=== PATIENT | male | born 1965 | race Caucasian/White ===

== ENCOUNTER 2017-06-20 12:01 | Observation (INO) | payer BC, OTHER ==
[2017-06-20] MEDS ORDERED: ASPIRIN 325 MG TABLET PO ONE (12:05)
[2017-06-20] MEDS ORDERED: ASPIRIN 81 MG CHEWABLE TABLET PO ONE (12:13)
[2017-06-20] MEDS ORDERED: DILTIAZEM 25MG/5ML VIAL IV ONE (12:14)
--- NOTE | 2017-06-20 12:14 | Emergency Department Record ---
History of Present Illness - General Chief Complaint: Arrythmia/Palpitations Stated Complaint: AFIB Time Seen by Provider: 06/20/17 12:05 Source: Patient - History of Present Illness Initial Comments: The patient states he was awakened from sleep with his heart pounding in his chest, nausea, and diaphoresis. He hoped it would go away for 3 hours, but did not want to come to the hospital. His family and co-worker convinced him to go to his PCP, who sent him here, now 9 hour after symptoms began. He states he is no longer nauseated or sweating, but feels palpitations in his chest. Patient has had numerous episodes of palpitations in the past all of which have resolved quickly with belching. Risks: High blood pressure on atenolol; denies DM, smoking, cholesterol elevation, or FH. He has o history of PE, DVT, or leg pain. MD Complaint: "Heart racing", Irregular heart beat - Related Data Home Medications Medication Instructions Recorded Confirmed Last Taken Allopurinol [Zyloprim] 100 mg PO DAILY 01/24/16 06/20/17 1 Day Ago ~01/23/16 Atenolol 50 mg PO DAILY 01/24/16 06/20/17 1 Day Ago ~01/23/16 Allergies Allergy/AdvReac Type Severity Reaction Status Date / Time No Known Drug Allergies Allergy Verified 01/24/16 11:19 Review of Systems Reviewed: No additional complaints except as noted below Constitutional: Reports: As per HPI. Denies: Chills, Fever, Malaise, Night sweats, Weakness, Weight change Eyes: Reports: As per HPI. Denies: Eye discharge, Eye pain, Photophobia, Vision change ENT: Reports: As per HPI. Denies: Congestion, Dental pain, Ear pain, Epistaxis , Hearing loss, Throat pain Respiratory: Reports: As per HPI. Denies: Cough, Dyspnea, Hemoptysis, Stridor, Wheezes Cardiovascular: Reports: As per HPI. Denies: Arrhythmia, Chest pain, Dyspnea on exertion, Edema, Murmurs, Orthopnea, Palpitations, Paroxysmal nocturnal dyspnea, Rheumatic Fever, Syncope Endocrine: Reports: As per HPI. Denies: Fatigue, Heat or cold intolerance, Polydipsia, Polyuria Gastrointestinal: Reports: As per HPI. Denies: Abdominal pain, Constipation, Diarrhea, Hematemesis, Hematochezia, Melena, Nausea, Vomiting Genitourinary: Reports: As per HPI. Denies: Dysuria, Frequency, Hematuria, Incontinence, Retention, Testicular pain, Testicular mass, Urgency Musculoskeletal: Reports: As per HPI. Denies: Arthralgia, Back pain, Gout, Joint swelling, Myalgia, Neck pain Skin: Reports: As per HPI. Denies: Bruising, Change in color, Change in hair/ nails, Lesions, Pruritus, Rash Neurological: Reports: As per HPI. Denies: Abnormal gait, Confusion, Headache, Numbness, Paresthesias, Seizure, Tingling, Tremors, Vertigo, Weakness Psychiatric: Reports: As per HPI. Denies: Anxiety, Auditory hallucinations, Depression, Homicidal thoughts, Suicidal thoughts, Visual hallucinations Hematological/Lymphatic: Reports: As per HPI. Denies: Anemia, Blood Clots, Easy bleeding, Easy bruising, Swollen glands Past Medical History - SOCIAL HISTORY Smoking Status: Never smoker - RESPIRATORY Hx Respiratory Disorders: No - CARDIOVASCULAR Hx Hypertension: Yes - NEURO Hx Neuro Disorders: No - GI Hx Diverticulitis: Yes - Hx Genitourinary Disorders: No - ENDOCRINE Hx Diabetes: No Hx Thyroid Disease: No - MUSCULOSKELETAL Hx Gout: Yes (usually once a year now twice this year) - PSYCH Hx Psych Problems: No - HEMATOLOGY/ONCOLOGY Hx Hematology/Oncology Disorders: No Family Medical History Family Hx Comment (NOT TO BE USED IN PLACE OF ITEMS BELOW): gout Physical Exam - General General Appearance: Alert, Oriented x3, Cooperative, Anxious (with trace of diaphoresis) - Head Head exam: Normal inspection - Eye Eye exam: Normal appearance, PERRL Pupils: Normal accommodation - ENT ENT exam: Normal exam, Mucous membranes moist, Normal external ear exam, Normal orophraynx, TM's normal bilaterally Ear exam: Normal external inspection. negative: External canal tenderness Nasal Exam: Normal inspection. negative: Discharge, Sinus tenderness Mouth exam: Normal external inspection, Tongue normal Teeth exam: Normal inspection. negative: Dental caries Throat exam: Normal inspection. negative: Tonsillar erythema, Tonsillar exudate - Neck Neck exam: Normal inspection, Full ROM. negative: Tenderness - Respiratory Respiratory exam: Normal lung sounds bilaterally. negative: Respiratory distress - Cardiovascular Cardiovascular Exam: Normal heart sounds, Irregular rhythm, Tachycardia - GI/Abdominal GI/Abdominal exam: Soft, Normal bowel sounds. negative: Tenderness - Rectal Rectal exam: Deferred - exam: Deferred - Extremities Extremities exam: Normal inspection, Full ROM, Normal capillary refill. negative: Calf tenderness, Pedal edema, Tenderness - Back Back exam: Reports: Normal inspection, Full ROM. Denies: Muscle spasm, Rash noted, Tenderness - Neurological Neurological exam: Alert, CN II-XII intact, Normal gait, Oriented X3, Reflexes normal - Psychiatric Psychiatric exam: Normal affect, Normal mood - Skin Skin exam: Dry, Intact, Normal color, Warm Course - Reevaluation(s) Reevaluation #1: Heart rate improved to 50's to 60's but still in atrial fibrillation. Patient is feeling better, no longer diaphoretic. Agrees to admission. 06/20/17 13:04 Reevaluation #2: MARIELA Perez for Dr. Li. Obs. 06/20/17 13:56 Medical Decision Making - Management Options MDM Management: Additional Work-up Planned (e.g. ADM/Transfer/OP Study) ( admission for new onset afib) - Data Complexity MDM Data: Labs Ordered and/or Reviewed, X-Ray Ordered and/or Reviewed (CXR two view Neg per ED physician.), EKG Ordered and/or Reviewed - Lab Data Result diagrams: 06/20/17 12:05 06/20/17 12:05 - EKG Data -: EKG Interpreted by Me EKG: No Acute Changes (Atrial fibrillation with rapid rate of 131/min.), Abnormal EKG Disposition Disposition: Admit Clinical Impression: New onset atrial fibrillation Disposition: Still a Patient at [facility] Decision to Admit: Admit from ER Decision to Admit Date: 06/20/17 Decision to Admit Time: 13:12 Accepting Physician: Dr. Li/Chey Perez Time Discussed w/Accepting Physician: 13:52 Condition: (2) Stable Forms: Patient Portal Access Quality - Quality Measures Quality Measures: N/A - Blood Pressure Screening Blood Pressure Classification: Hypertensive Reading Systolic Measurement: 141 Diastolic Measurement: 124 Screening for High Blood Pressure: Not Eligible for Measure [[id number]] Not Eligible Reason: Active Diagnosis of Hypertension
[2017-06-20 12:16] LABS: BASO % 0.3 % (0-6); EOS % 1.9 % (0-6); GRAN % 62.5 % (47-80); HEMATOCRIT 50.2 % (42.0-52.0); HEMOGLOBIN 17.7 gm/dl (14.0-18.0); LYMPH % 29.1 % (16-45); MEAN CELL VOLUME 84.9 fl (81-97); MEAN CORPUSCULAR HEMOGLOBIN 29.9 pg (27-33); MEAN CORPUSCULAR HGB CONC 35.3 g/dl (32-36); MEAN PLATELET VOLUME 9.9 fl (7.4-10.4); MONO % 6.2 % (0-9); PLATELET COUNT 236 K/uL (130-400); RED BLOOD COUNT 5.91 M/uL (4.40-5.70); RED CELL DISTRIBUTION WIDTH 13.2 % (11.5-14.5); WHITE BLOOD COUNT W/O DIFF 6.3 K/uL (4.2-12.2)
[2017-06-20 12:28] LABS: ANION GAP 14.1 (7-16); BLOOD UREA NITROGEN 19 mg/dL (9-20); CARBON DIOXIDE 25.9 mmol/L (22-30); CREATININE 1.1 mg/dL (0.66-1.25); EST GLOMERULAR FILTRATION RATE > 60 ml/min; GLUCOSE,RANDOM 97 mg/dL (70-110)
[2017-06-20 12:32] LABS: INR 0.96; PROTHROMBIN TIME (PATIENT) 10.4 SECONDS (9.5-12.1)
[2017-06-20 12:33] LABS: D-DIMER < 0.19 mg/L FEU (0-0.59)
[2017-06-20 12:41] LABS: TROPONIN I 0.019 ng/mL (0.00-0.034)
[2017-06-20] MEDS ORDERED: DILTIAZEM HCL 125 MG in 0.9 % SODIUM CHLORIDE 100ML 100 ML IV SCH (13:15)
[2017-06-20] MEDS ORDERED: AL HYDROX/MAG HYDROX 30ML UD PO PRN (15:10)
[2017-06-20] MEDS ORDERED: ACETAMINOPHEN 500 MG TABLET PO PRN (15:10)
[2017-06-20] MEDS ORDERED: HEPARIN SODIUM 1000 UNIT/1 ML 10ML VIAL IVP ONE (16:07)
--- NOTE | 2017-06-20 16:10 | History & Physical ---
History of Present Illness - Date of Service Date of Service for History & Physical: 06/20/17 - History of Present Illness Admitting Diagnosis: New onset atrial fibrillation History of Present Illness: 52yo male with CC of heart palpitations. HE has history of htn and gout. Patient was awoken at 3am on 06/20/17 with heart palpitations. He was having profuse sweating, felt like his heart was beating out of his chest, some shortness of breath and tightness in the left upper extremity. Says he took a shower and felt his symptoms got somewhat better. He went to work this morning and continued to have symptoms and finally his boss and convinced him to go to the ED. While in the ED, was found to be in afib with rate of 131. No ST changes. CXR was negative for acute process. First set of cardiac enzymes was within normal ranges. Patient received cardizem bolus of 20mg and placed on 5mg/hr drip. Heart rate improved to 90-100bpm. His sweating and heart palpitations resolved once his heart rate improved. Blood pressure remained stable between 115-111/75- 85mmhg. Patient was admitted to [facility] for observation 06/20/17-Patient states he is feeling great right now. He denies any shortness of breath, chest pain or heaviness, no left arm tightness or numbness/tingling. He says he has not been having any sweating since his arrival to ED. Says he has never been hospitalized for this before. He has had very brief episodes of heart palpitations in the past that have only ever last a few seconds, nothing like this. He denies any medical problems aside from htn and gout. PCP: [facility]: not established Travel Screening - Travel/Exposure Within Last 30 Days Have you traveled within the last 30 days?: No - Travel/Exposure Within Last Year Have you traveled outside the [place] in the last year?: No - Additonal Travel Details Have you been exposed to anyone with a communicable illness?: No - Travel Symptoms Symptom Screening: None Review of Systems Constitutional: Reports: As per HPI. Denies: Chills, Fever, Malaise, Night sweats, Weakness, Weight change Eyes: Reports: As per HPI. Denies: Eye discharge, Eye pain, Photophobia, Vision change ENT: Reports: As per HPI. Denies: Congestion, Dental pain, Ear pain, Epistaxis , Hearing loss, Throat pain Respiratory: Reports: As per HPI. Denies: Cough, Dyspnea, Hemoptysis, Stridor, Wheezes Cardiovascular: Reports: As per HPI. Denies: Arrhythmia, Chest pain, Dyspnea on exertion, Edema, Murmurs, Orthopnea, Palpitations, Paroxysmal nocturnal dyspnea, Rheumatic Fever, Syncope Endocrine: Reports: As per HPI. Denies: Fatigue, Heat or cold intolerance, Polydipsia, Polyuria Gastrointestinal: Reports: As per HPI. Denies: Abdominal pain, Constipation, Diarrhea, Hematemesis, Hematochezia, Melena, Nausea, Vomiting Genitourinary: Reports: As per HPI. Denies: Dysuria, Frequency, Hematuria, Incontinence, Retention, Testicular pain, Testicular mass, Urgency Musculoskeletal: Reports: As per HPI. Denies: Arthralgia, Back pain, Gout, Joint swelling, Myalgia, Neck pain Skin: Reports: As per HPI. Denies: Bruising, Change in color, Change in hair/ nails, Lesions, Pruritus, Rash Neurological: Reports: As per HPI. Denies: Abnormal gait, Confusion, Headache, Numbness, Paresthesias, Seizure, Tingling, Tremors, Vertigo, Weakness Psychiatric: Reports: As per HPI. Denies: Anxiety, Auditory hallucinations, Depression, Homicidal thoughts, Suicidal thoughts, Visual hallucinations Hematological/Lymphatic: Reports: As per HPI. Denies: Anemia, Blood Clots, Easy bleeding, Easy bruising, Swollen glands Past Medical History - SOCIAL HISTORY Smoking Status: Never smoker Alcohol Use: Occasional Alcohol Use Comment: whiskey Drug Use: None - RESPIRATORY Hx Respiratory Disorders: No - CARDIOVASCULAR Hx Cardio Disorders: Yes Hx Abnormal EKG: Yes (afib today) Hx Chest Pain: Yes (today) Hx Hypertension: Yes (medication) Hx Irregular Heartbeat: Yes (today) Hx Palpitations: Yes (today) - NEURO Hx Neuro Disorders: No - GI Hx GI Disorders: Yes Hx Diverticulitis: Yes - Hx Genitourinary Disorders: No - ENDOCRINE Hx Diabetes: No Hx Thyroid Disease: No - MUSCULOSKELETAL Hx Musculoskeletal Disorders: Yes Hx Gout: Yes (usually once a year now twice this year) - PSYCH Hx Psych Problems: No - HEMATOLOGY/ONCOLOGY Hx Hematology/Oncology Disorders: No Family Medical History Any Significant Family History?: Yes Family Hx Comment (NOT TO BE USED IN PLACE OF ITEMS BELOW): gout Hx Cancer: Mother, Grandparents Hx HTN: Father, Grandparents H&P Meds/Allergies - Allergies Allergies: Allergies Allergy/AdvReac Type Severity Reaction Status Date / Time No Known Drug Allergies Allergy Verified 01/24/16 11:19 - Home Medications Home Medications Medication Instructions Recorded Confirmed Last Taken Allopurinol [Zyloprim] 100 mg PO DAILY 01/24/16 06/20/17 1 Day Ago ~01/23/16 Atenolol 50 mg PO DAILY 01/24/16 06/20/17 1 Day Ago ~01/23/16 - Active Medications Active Medications: Current Medications Acetaminophen (Tylenol 500mg Tab) 1,000 mg PO Q6H PRN PRN Reason: PAIN/TEMP Al Hydroxide/Mg Hydroxide (Maalox) 30 ml PO Q4H PRN PRN Reason: GI UPSET Allopurinol (Zyloprim) 100 mg PO DAILY HENOK Aspirin (Ecotrin (Ec)) 325 mg PO DAILY HENOK Atenolol (Tenormin) 50 mg PO DAILY HENOK Diltiazem HCl 125 mg/ Sodium (Chloride) 125 mls @ 5 mls/hr IV TITRATE HENOK; 5 MG /HR PRN Reason: Protocol Last Admin: 06/20/17 13:14 Dose: 5 mg/hr, 5 mls/hr Physical Exam - Vital Signs Vital Signs: Vital Signs - Last 24 Hrs Pulse Pulse Pulse Resp BP BP Pulse Ox 06/20/17 15:34 95 H 83 14 06/20/17 15:06 83 14 111/85 96 06/20/17 14:20 89 16 115/76 96 - General General Appearance: Alert, Oriented x3, Cooperative, No acute distress - Head Head exam: Normal inspection - Eye Eye exam: Normal appearance, PERRL Pupils: Normal accommodation - ENT ENT exam: Normal exam, Mucous membranes moist, Normal external ear exam, Normal orophraynx, TM's normal bilaterally Ear exam: Normal external inspection. negative: External canal tenderness Nasal Exam: Normal inspection. negative: Discharge, Sinus tenderness Mouth exam: Normal external inspection, Tongue normal Teeth exam: Normal inspection. negative: Dental caries Throat exam: Normal inspection. negative: Tonsillar erythema, Tonsillar exudate - Neck Neck exam: Normal inspection, Full ROM. negative: Tenderness - Respiratory Respiratory exam: Normal lung sounds bilaterally. negative: Respiratory distress - Cardiovascular Cardiovascular Exam: Regular rate, Normal heart sounds, Irregular rhythm - GI/Abdominal GI/Abdominal exam: Soft, Normal bowel sounds. negative: Tenderness - Rectal Rectal exam: Deferred - exam: Deferred - Extremities Extremities exam: Normal inspection, Full ROM, Normal capillary refill. negative: Calf tenderness, Pedal edema, Tenderness - Back Back exam: Reports: Normal inspection, Full ROM. Denies: Muscle spasm, Rash noted, Tenderness - Neurological Neurological exam: Alert, CN II-XII intact, Normal gait, Oriented X3, Reflexes normal - Psychiatric Psychiatric exam: Normal affect, Normal mood - Skin Skin exam: Dry, Intact, Normal color, Warm Results - Labs Result Diagrams: 06/20/17 12:05 06/20/17 12:05 - Imaging and Cardiology Chest x-ray Status: Report reviewed (no actue process) VTE H&P Assessment - Risk for VTE Risk for VTE: Yes Risk Level: High Risk Assessment Date: 06/20/17 Risk Assessment Time: 16:11 VTE Orders Placed or Will Be Placed: Yes Plan - Detailed Diagnosis and Plan (1) New onset atrial fibrillation Current Visit: Yes Status: Acute Base Code: I48.91 - UNSPECIFIED ATRIAL FIBRILLATION Comment: 06/20/17- new onset of afib 12H ago with rate controlled 90-110bpm on cardizem 5mg/hr drip. Patient is hemodynamically stable and asymptomatic. 1st set of cardiac enzymes returned within normal ranges and no ischemic changes on EKG. Spoke with Dr. Lance of [facility] and he does feel patient is candidate for [facility] cardioversion. -Will do acute care transfer to [facility] accepting physician is Dr. Lance of [facility] -will continue cardizem drip at 5mg/hr -will give 5000 unit heparin bolus and start 15units/kg/hr drip -next set of enzymes will be due at 20:05 (2) Full code status Current Visit: Yes Status: Acute Base Code: Z78.9 - OTHER SPECIFIED HEALTH STATUS Comment: 06/20/17- patient is full code (3) DVT prophylaxis Current Visit: Yes Status: Acute Base Code: [id number] - Comment: 06/20/17- patient considered high risk -full dose apsirin given -heparin bolus and drip initiated
[2017-06-20] MEDS ORDERED: HEPARIN SODIUM/D5W 25,000 UNITS/500 ML BAG IV SCH (16:15)
--- NOTE | 2017-06-20 16:19 | Discharge Summary ---
Providers Discharge Summary Date: 06/20/17 Date of admission: 06/20/17 14:19 Expected Date of Discharge: 06/20/17 Attending physician: KULDEEP NAPOLES Primary care physician: ANA MARÍA ORTIZ D.O. Physical Exam - Vital Signs Vital Signs: Vital Signs - Last 24 Hrs Pulse Pulse Pulse Resp BP BP Pulse Ox 06/20/17 15:34 95 H 83 14 06/20/17 15:06 83 14 111/85 96 06/20/17 14:20 89 16 115/76 96 - General General Appearance: Alert, Oriented x3, Cooperative, No acute distress - Head Head exam: Normal inspection - Eye Eye exam: Normal appearance, PERRL Pupils: Normal accommodation - ENT ENT exam: Normal exam, Mucous membranes moist, Normal external ear exam, Normal orophraynx, TM's normal bilaterally Ear exam: Normal external inspection. negative: External canal tenderness Nasal Exam: Normal inspection. negative: Discharge, Sinus tenderness Mouth exam: Normal external inspection, Tongue normal Teeth exam: Normal inspection. negative: Dental caries Throat exam: Normal inspection. negative: Tonsillar erythema, Tonsillar exudate - Neck Neck exam: Normal inspection, Full ROM. negative: Tenderness - Respiratory Respiratory exam: Normal lung sounds bilaterally. negative: Respiratory distress - Cardiovascular Cardiovascular Exam: Regular rate, Normal heart sounds, Irregular rhythm - GI/Abdominal GI/Abdominal exam: Soft, Normal bowel sounds. negative: Tenderness - Rectal Rectal exam: Deferred - exam: Deferred - Extremities Extremities exam: Normal inspection, Full ROM, Normal capillary refill. negative: Calf tenderness, Pedal edema, Tenderness - Back Back exam: Reports: Normal inspection, Full ROM. Denies: Muscle spasm, Rash noted, Tenderness - Neurological Neurological exam: Alert, CN II-XII intact, Normal gait, Oriented X3, Reflexes normal - Psychiatric Psychiatric exam: Normal affect, Normal mood - Skin Skin exam: Dry, Intact, Normal color, Warm Hospitalization - Hospitalization Admission Diagnosis: New onset atrial fibrillation - Problem List/Discharge Diagnosis (1) New onset atrial fibrillation Current Visit: Yes Status: Acute Base Code: I48.91 - UNSPECIFIED ATRIAL FIBRILLATION Comment: 06/20/17- new onset of afib 12H ago with rate controlled 90-110bpm on cardizem 5mg/hr drip. Patient is hemodynamically stable and asymptomatic. 1st set of cardiac enzymes returned within normal ranges and no ischemic changes on EKG. Spoke with Dr. Lance of [facility] and he does feel patient is candidate for [facility] cardioversion. -Will do acute care transfer to [facility] accepting physician is Dr. Lance of [facility] -will continue cardizem drip at 5mg/hr -will give 5000 unit heparin bolus and start 15units/kg/hr drip -next set of enzymes will be due at 20:05 (2) Full code status Current Visit: Yes Status: Acute Base Code: Z78.9 - OTHER SPECIFIED HEALTH STATUS Comment: 06/20/17- patient is full code (3) DVT prophylaxis Current Visit: Yes Status: Acute Base Code: [id number] - Comment: 06/20/17- patient considered high risk -full dose apsirin given -heparin bolus and drip initiated - Hospitalization Course Disposition: Acute Care Hospital Transfer Hospital Course: 52yo male with CC of heart palpitations. HE has history of htn and gout. Patient was awoken at 3am on 06/20/17 with heart palpitations. He was having profuse sweating, felt like his heart was beating out of his chest, some shortness of breath and tightness in the left upper extremity. Says he took a shower and felt his symptoms got somewhat better. He went to work this morning and continued to have symptoms and finally his boss and convinced him to go to the ED. While in the ED, was found to be in afib with rate of 131. No ST changes. CXR was negative for acute process. First set of cardiac enzymes was within normal ranges. Patient received cardizem bolus of 20mg and placed on 5mg/hr drip. Heart rate improved to 90-100bpm. His sweating and heart palpitations resolved once his heart rate improved. Blood pressure remained stable between 115-111/75- 85mmhg. Patient was admitted to [facility] for observation 06/20/17-Patient states he is feeling great right now. He denies any shortness of breath, chest pain or heaviness, no left arm tightness or numbness/tingling. He says he has not been having any sweating since his arrival to ED. Says he has never been hospitalized for this before. He has had very brief episodes of heart palpitations in the past that have only ever last a few seconds, nothing like this. He denies any medical problems aside from htn and gout. PCP: [facility]: not established Procedures: Cardiology Procedures 06/20/17 12:02 EKG NOW Condition at Discharge: (2) Stable Discharge Medications - Discharge Medications Home Medications: Ambulatory Orders Allopurinol [Zyloprim] 100 mg PO DAILY 01/24/16 [Last Taken 1 Day Ago ~01/23/16] Atenolol 50 mg PO DAILY 01/24/16 [Last Taken 1 Day Ago ~01/23/16] Discharge Plan - Discharge Instructions Activity at Discharge: Resume Usual Activities As Tolerated Diet at Discharge: Low Fat, Low Cholesterol
--- NOTE | 2017-06-21 07:14 | RADIOLOGY REPORT ---
EXAM: CHEST, TWO VIEWS HISTORY: DIFFICULTY IN BREATHING. TECHNIQUE: Frontal and lateral views of the chest were performed. FINDINGS: The heart size is normal. The lung nicolas are clear. The osseous structures are normal. IMPRESSION: NEGATIVE CHEST EXAMINATION. JOB NUMBER: [id number] MTDD
[2017-06-21] MEDS ORDERED: ALLOPURINOL 100 MG TAB PO SCH (10:00)
[2017-06-21] MEDS ORDERED: ASPIRIN 325 MG TAB ENTERIC-COATED PO SCH (10:00)
[2017-06-21] MEDS ORDERED: ATENOLOL 50 MG TABLET PO SCH (10:00)
== END 2017-06-20 19:21 | disposition short-term general hospital (02) ==
LOC: ER 12:01 → MEDSURG 14:19
PROVIDERS: ADMIT Family Medicine; ATTEND Family Medicine
DX: I48.91 Unspecified atrial fibrillation (principal); I10 Essential (primary) hypertension; M10.9 Gout, unspecified
CPT/HCPCS: 99285 ×2; 96365; 96375; 85025; 85730; 85610; 84484; 80048; 84443; 85379; 71020; 93005; 93010; G0378; 99236

== ENCOUNTER 2017-07-14 16:24 | Emergency (ER) | payer BC, OTHER ==
[2017-07-14] MEDS ORDERED: 0.9 % SODIUM CHLORIDE 1000ML 1,000 ML IV PRN (17:06)
[2017-07-14] MEDS ORDERED: ASPIRIN 81 MG CHEWABLE TABLET PO ONE (17:06)
--- NOTE | 2017-07-14 17:08 | Emergency Department Record ---
History of Present Illness - General Chief Complaint: Chest Pain Stated Complaint: CHEST PAIN Time Seen by Provider: 07/14/17 16:35 Source: Patient, RN notes reviewed Mode of Arrival: Ambulatory - History of Present Illness Initial Comments: chst pain , SOB which started one hour prior to arrival and not doing anything. Stress test three weeks ago at [facility] Patient said it was negative. 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 No diaphoreseis. PMH 3 weeks ago had atrial fib and converted with cardizem. MD Complaint: Chest pain Onset/Timin -: Hour(s) Onset: During rest Pain Location: Substernal Pain Radiation: Back Severity scale (1-10): >10 Quality: Sharp Consistency: Intermittent Improves With: Nothing Worsens With: Nothing Treatments Prior to Arrival: None - Related Data Home Medications Medication Instructions Recorded Confirmed Last Taken Allopurinol [Zyloprim] 100 mg PO DAILY 01/24/16 07/14/17 07/14/17 Atenolol 50 mg PO DAILY 01/24/16 07/14/17 07/14/17 Lisinopril 10 mg PO DAILY 07/14/17 07/14/17 07/14/17 Allergies Allergy/AdvReac Type Severity Reaction Status Date / Time No Known Drug Allergies Allergy Verified 07/14/17 16:37 Travel Screening - Travel/Exposure Within Last 30 Days Have you traveled within the last 30 days?: No Review of Systems Reviewed: No additional complaints except as noted below Constitutional: Reports: As per HPI. Denies: Chills, Fever, Malaise, Night sweats, Weakness, Weight change Eyes: Reports: As per HPI. Denies: Eye discharge, Eye pain, Photophobia, Vision change ENT: Reports: As per HPI. Denies: Congestion, Dental pain, Ear pain, Epistaxis , Hearing loss, Throat pain Respiratory: Reports: As per HPI, Dyspnea. Denies: Cough, Hemoptysis, Stridor, Wheezes Cardiovascular: Reports: As per HPI, Chest pain. Denies: Arrhythmia, Dyspnea on exertion, Edema, Murmurs, Orthopnea, Palpitations, Paroxysmal nocturnal dyspnea, Rheumatic Fever, Syncope Endocrine: Reports: As per HPI. Denies: Fatigue, Heat or cold intolerance, Polydipsia, Polyuria Gastrointestinal: Reports: As per HPI. Denies: Abdominal pain, Constipation, Diarrhea, Hematemesis, Hematochezia, Melena, Nausea, Vomiting Genitourinary: Reports: As per HPI. Denies: Dysuria, Frequency, Hematuria, Incontinence, Retention, Testicular pain, Testicular mass, Urgency Musculoskeletal: Reports: As per HPI. Denies: Arthralgia, Back pain, Gout, Joint swelling, Myalgia, Neck pain Skin: Reports: As per HPI. Denies: Bruising, Change in color, Change in hair/ nails, Lesions, Pruritus, Rash Neurological: Reports: As per HPI. Denies: Abnormal gait, Confusion, Headache, Numbness, Paresthesias, Seizure, Tingling, Tremors, Vertigo, Weakness Psychiatric: Reports: As per HPI. Denies: Anxiety, Auditory hallucinations, Depression, Homicidal thoughts, Suicidal thoughts, Visual hallucinations Hematological/Lymphatic: Reports: As per HPI. Denies: Anemia, Blood Clots, Easy bleeding, Easy bruising, Swollen glands Past Medical History - SOCIAL HISTORY Smoking Status: Never smoker Alcohol Use: Occasional Drug Use: None - RESPIRATORY Hx Respiratory Disorders: No - CARDIOVASCULAR Hx Cardio Disorders: Yes Hx Abnormal EKG: Yes Hx Chest Pain: Yes Hx Hypertension: Yes Hx Irregular Heartbeat: Yes Hx Palpitations: Yes - NEURO Hx Neuro Disorders: No - GI Hx GI Disorders: Yes Hx Diverticulitis: Yes - Hx Genitourinary Disorders: No - ENDOCRINE Hx Diabetes: No Hx Thyroid Disease: No - MUSCULOSKELETAL Hx Musculoskeletal Disorders: Yes Hx Gout: Yes - PSYCH Hx Psych Problems: No - HEMATOLOGY/ONCOLOGY Hx Hematology/Oncology Disorders: No Family Medical History Any Significant Family History?: Yes Family Hx Comment (NOT TO BE USED IN PLACE OF ITEMS BELOW): gout Hx Cancer: Mother, Grandparents Hx HTN: Father, Grandparents Physical Exam - General General Appearance: Alert, Oriented x3, Cooperative, No acute distress - Head Head exam: Normal inspection - Eye Eye exam: Normal appearance, PERRL Pupils: Normal accommodation - ENT ENT exam: Normal exam, Mucous membranes moist, Normal external ear exam, Normal orophraynx, TM's normal bilaterally Ear exam: Normal external inspection. negative: External canal tenderness Nasal Exam: Normal inspection. negative: Discharge, Sinus tenderness Mouth exam: Normal external inspection, Tongue normal Teeth exam: Normal inspection. negative: Dental caries Throat exam: Normal inspection. negative: Tonsillar erythema, Tonsillar exudate - Neck Neck exam: Normal inspection, Full ROM. negative: Tenderness - Respiratory Respiratory exam: Normal lung sounds bilaterally. negative: Respiratory distress - Cardiovascular Cardiovascular Exam: Regular rate, Normal rhythm, Normal heart sounds - GI/Abdominal GI/Abdominal exam: Soft, Normal bowel sounds. negative: Tenderness - Rectal Rectal exam: Deferred - exam: Deferred - Extremities Extremities exam: Normal inspection, Full ROM, Normal capillary refill. negative: Tenderness - Back Back exam: Reports: Normal inspection, Full ROM. Denies: Muscle spasm, Rash noted, Tenderness - Neurological Neurological exam: Alert, Normal gait, Oriented X3, Reflexes normal - Psychiatric Psychiatric exam: Normal affect, Normal mood - Skin Skin exam: Dry, Intact, Normal color, Warm Course upon arrival to ED room his chest pain went away and he is breathing better - Reevaluation(s) Reevaluation #1: patient is feeling better , not SOB and dicussed case with Dr. Bhatt and he recommended second set of cardiac enzymes and if negative follow up with Dr. Good next week. 07/14/17 18:54 07/14/17 19:03 Reevaluation #2: CAre turned over to Dr. Kline for a second set of enzymes 07/14/17 18:59 Medical Decision Making - Data Complexity MDM Data: Labs Ordered and/or Reviewed (negative), X-Ray Ordered and/or Reviewed (chest negative), EKG Ordered and/or Reviewed (No acute changes) - Lab Data Result diagrams: 07/14/17 17:09 07/14/17 17:09 Disposition Clinical Impression: Chest pain Qualifiers: Chest pain type: unspecified Qualified Code(s): R07.9 - Chest pain, unspecified Disposition: Acute Care Hospital Transfer Condition: (2) Stable Forms: Patient Portal Access Quality - Quality Measures Quality Measures: N/A - Blood Pressure Screening Does Patient Have Any of the Following: No Blood Pressure Classification: Pre-Hypertensive BP Reading Systolic Measurement: 129 Diastolic Measurement: 83 Screening for High Blood Pressure: < Pre-Hypertensive BP, F/U Documented > [ G8950] Pre-Hypertensive Follow-up Interventions: Referral to alternative/primary care provider.
[2017-07-14 17:19] LABS: BASO % 0.2 % (0-6); EOS % 1.9 % (0-6); GRAN % 54.4 % (47-80); HEMATOCRIT 44.1 % (42.0-52.0); HEMOGLOBIN 15.6 gm/dl (14.0-18.0); LYMPH % 35.5 % (16-45); MEAN CELL VOLUME 85.8 fl (81-97); MEAN CORPUSCULAR HEMOGLOBIN 30.4 pg (27-33); MEAN CORPUSCULAR HGB CONC 35.4 g/dl (32-36); MEAN PLATELET VOLUME 10.2 fl (7.4-10.4); PLATELET COUNT 239 K/uL (130-400); RED BLOOD COUNT 5.14 M/uL (4.40-5.70); RED CELL DISTRIBUTION WIDTH 12.8 % (11.5-14.5); WHITE BLOOD COUNT W/O DIFF 5.4 K/uL (4.2-12.2)
[2017-07-14 17:32] LABS: ANION GAP 12.2 (7-16); BLOOD UREA NITROGEN 17 mg/dL (9-20); CARBON DIOXIDE 23.8 mmol/L (22-30); EST GLOMERULAR FILTRATION RATE > 60 ml/min; GLUCOSE,RANDOM 133 mg/dL (70-110)
[2017-07-14 17:44] LABS: CKMB 3.6 ug/L (0-6)
[2017-07-14 17:45] LABS: TROPONIN I < 0.012 ng/mL (0.00-0.034)
[2017-07-14 17:56] LABS: D-DIMER 0.21 mg/L FEU (0-0.59); PARTIAL THROMBOPLASTIN TIME 28.1 SECONDS (24.5-39.1)
--- NOTE | 2017-07-14 19:19 | Emergency Department Record ---
History of Present Illness - General Chief Complaint: Chest Pain Stated Complaint: CHEST PAIN Time Seen by Provider: 07/14/17 16:35 Source: Patient, RN notes reviewed Mode of Arrival: Ambulatory - History of Present Illness Initial Comments: 52 yo male patient signed out at turnover by Dr Horne The patient presented with chest pain. The patient is chest pain free. Dr Horne consulted Dr Bhatt of [facility]. The patient had a normal stress test per Dr Horne and Nova in the last [address] Bhatt requested a second set of cardiac enzymes tonight given the normal stress test and if negative follow up in the office The patient was seen at the bedside and agrees with the plan and reports continues to be asymptomatic. Onset/Timin -: Hour(s) Onset: During rest Pain Location: Substernal Pain Radiation: Back Severity scale (1-10): >10 Quality: Sharp Consistency: Intermittent Improves With: Nothing Worsens With: Nothing Treatments Prior to Arrival: None - Related Data Home Medications Medication Instructions Recorded Confirmed Last Taken Allopurinol [Zyloprim] 100 mg PO DAILY 01/24/16 07/14/17 07/14/17 Atenolol 50 mg PO DAILY 01/24/16 07/14/17 07/14/17 Lisinopril 10 mg PO DAILY 07/14/17 07/14/17 07/14/17 Allergies Allergy/AdvReac Type Severity Reaction Status Date / Time No Known Drug Allergies Allergy Verified 07/14/17 16:37 Travel Screening - Travel/Exposure Within Last 30 Days Have you traveled within the last 30 days?: No Review of Systems Constitutional: Reports: As per HPI. Denies: Chills, Fever, Malaise, Night sweats, Weakness, Weight change Eyes: Reports: As per HPI. Denies: Eye discharge, Eye pain, Photophobia, Vision change ENT: Reports: As per HPI. Denies: Congestion, Dental pain, Ear pain, Epistaxis , Hearing loss, Throat pain Respiratory: Reports: As per HPI, Dyspnea. Denies: Cough, Hemoptysis, Stridor, Wheezes Cardiovascular: Reports: As per HPI, Chest pain. Denies: Arrhythmia, Dyspnea on exertion, Edema, Murmurs, Orthopnea, Palpitations, Paroxysmal nocturnal dyspnea, Rheumatic Fever, Syncope Endocrine: Reports: As per HPI. Denies: Fatigue, Heat or cold intolerance, Polydipsia, Polyuria Gastrointestinal: Reports: As per HPI. Denies: Abdominal pain, Constipation, Diarrhea, Hematemesis, Hematochezia, Melena, Nausea, Vomiting Genitourinary: Reports: As per HPI. Denies: Dysuria, Frequency, Hematuria, Incontinence, Retention, Testicular pain, Testicular mass, Urgency Musculoskeletal: Reports: As per HPI. Denies: Arthralgia, Back pain, Gout, Joint swelling, Myalgia, Neck pain Skin: Reports: As per HPI. Denies: Bruising, Change in color, Change in hair/ nails, Lesions, Pruritus, Rash Neurological: Reports: As per HPI. Denies: Abnormal gait, Confusion, Headache, Numbness, Paresthesias, Seizure, Tingling, Tremors, Vertigo, Weakness Psychiatric: Reports: As per HPI. Denies: Anxiety, Auditory hallucinations, Depression, Homicidal thoughts, Suicidal thoughts, Visual hallucinations Hematological/Lymphatic: Reports: As per HPI. Denies: Anemia, Blood Clots, Easy bleeding, Easy bruising, Swollen glands Past Medical History - SOCIAL HISTORY Smoking Status: Never smoker Alcohol Use: Occasional Drug Use: None - RESPIRATORY Hx Respiratory Disorders: No - CARDIOVASCULAR Hx Cardio Disorders: Yes Hx Abnormal EKG: Yes Hx Chest Pain: Yes Hx Hypertension: Yes Hx Irregular Heartbeat: Yes Hx Palpitations: Yes - NEURO Hx Neuro Disorders: No - GI Hx GI Disorders: Yes Hx Diverticulitis: Yes - Hx Genitourinary Disorders: No - ENDOCRINE Hx Diabetes: No Hx Thyroid Disease: No - MUSCULOSKELETAL Hx Musculoskeletal Disorders: Yes Hx Gout: Yes - PSYCH Hx Psych Problems: No - HEMATOLOGY/ONCOLOGY Hx Hematology/Oncology Disorders: No Family Medical History Any Significant Family History?: Yes Family Hx Comment (NOT TO BE USED IN PLACE OF ITEMS BELOW): gout Hx Cancer: Mother, Grandparents Hx HTN: Father, Grandparents Course Vital Signs 07/14/17 07/14/17 17:10 18:15 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 ] Respiratory 16 16 Rate Blood Pressure 125/82 129/83 [Left Arm] Pulse Ox 97 98 - Reevaluation(s) Reevaluation #1: See HPI for bedside sign out note Second set of enzymes planned 07/14/17 19:18 Reevaluation #2: The repeat troponin was 0.167 He will be placed on heparin and ONE CALL recontacted to discuss with cardiology The patient remains pain free at this time 07/14/17 21:51 Reevaluation #3: Dr Bhatt accepts the patient at [facility] 07/14/17 22:03 Medical Decision Making - Lab Data Result diagrams: 07/14/17 17:09 07/14/17 17:09 Lab Results 07/14/17 07/14/17 07/14/17 Range/Units 17:09 17:09 17:09 WBC 5.4 (4.2-12.2) K/uL RBC 5.14 (4.40-5.70) M/uL Hgb 15.6 (14.0-18.0) gm/dl Hct 44.1 (42.0-52.0) % MCV 85.8 (81-97) fl MCH 30.4 (27-33) pg MCHC 35.4 (32-36) g/dl RDW 12.8 (11.5-14.5) % Plt Count 239 (130-400) K/uL MPV 10.2 (7.4-10.4) fl Gran % 54.4 (47-80) % Lymphocytes % 35.5 (16-45) % Monocytes % 8.0 (0-9) % Eosinophils % 1.9 (0-6) % Basophils % 0.2 (0-6) % APTT 28.10 (24.5-39.1) SECONDS D-Dimer 0.21 (0-0.59) mg/L FEU Sodium 142 (136-145) mmol/L Potassium 3.8 (3.5-5.1) mmol/L Chloride 106 (98-107) mmol/L Carbon Dioxide 23.8 (22-30) mmol/L Anion Gap 12.2 (7-16) BUN 17 (9-20) mg/dL Creatinine 1.0 (0.66-1.25) mg/dL Estimated GFR > 60 ml/min Random Glucose 133 H (70-110) mg/dL Calcium 9.2 (8.5-10.1) mg/dL CK-MB (CK-2) 3.6 (0-6) ug/L Myoglobin 92.7 (0.0-121.0) ng/mL Troponin I < 0.012 (0.00-0.034) ng/mL Disposition Disposition: Transfer Clinical Impression: Elevated troponin Chest pain Qualifiers: Chest pain type: unspecified Qualified Code(s): R07.9 - Chest pain, unspecified Disposition: Acute Care Hospital Transfer Transfer To: [facility] Reason For Transfer: [place], elevated troponin Accepting Physician: Nova Time Discussed w/Accepting Physician: 22:00 Condition: (2) Stable Instructions: Chest Pain (ED) Additional Instructions: Return immediately if you have any return of chest pain 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 Call Monday for the appointment time. Forms: Patient Portal Access Time of Disposition: 21:50 Quality - Quality Measures Quality Measures: N/A - Blood Pressure Screening Does Patient Have Any of the Following: No Blood Pressure Classification: Hypertensive Reading Systolic Measurement: 145 Diastolic Measurement: 93 Screening for High Blood Pressure: < Pre-Hypertensive BP, F/U Documented > [ G8950] Pre-Hypertensive Follow-up Interventions: Referral to alternative/primary care provider.
[2017-07-14] MEDS ORDERED: HEPARIN SODIUM 1000 UNIT/1 ML 10ML VIAL IVP ONE (21:51)
[2017-07-14] MEDS ORDERED: HEPARIN SODIUM/D5W 25,000 UNITS/500 ML BAG IV SCH (22:00)
--- NOTE | 2017-07-17 14:19 | RADIOLOGY REPORT ---
EXAM: CHEST, TWO VIEWS HISTORY: DIFFICULTY IN BREATHING. TECHNIQUE: Frontal and lateral views of the chest were performed. FINDINGS: The heart size is normal. The lung nicolas are clear. The osseous structures are normal. IMPRESSION: NEGATIVE CHEST EXAMINATION. JOB NUMBER: [id number] MTDD
== END 2017-07-14 22:43 | disposition short-term general hospital (02) ==
LOC: ER 16:24
DX: R07.9 Chest pain, unspecified (principal); R79.89 Other specified abnormal findings of blood chemistry; R06.02 Shortness of breath
CPT/HCPCS: 71020; 80048; 82553; 83874; 84484; 85025; 85379; 85730; 93005; 93010; 96365; 96375; 99284; 99285

== ENCOUNTER 2017-08-29 13:25 | Emergency (ER) | payer BC, OTHER ==
--- NOTE | 2017-08-29 13:34 | Emergency Department Record ---
History of Present Illness - General Chief complaint: Allergic Reaction Stated complaint: ALLERGIC REACTION Time Seen by Provider: 08/29/17 13:31 Source: Patient Mode of Arrival: Ambulatory Limitations: No limitations - History of Present Illness Initial Comments: 52 yo male presents with hives that started this morning. He has swelling of the left eye lid, lips and tongue. No difficulty breathing. No tightness in the throat. No wheezing. No chest pain. He did have a cardiac stent one month ago. He has started new medication for gout. No history of anaphylaxis. MD Complaint: Allergic reaction, Hives -: Hour(s) Symptoms: Itching, Rash Severity: Moderate Treatment Prior to Arrival: None Previous Allergy History: None - Related Data Previous Rx's Medication Instructions Recorded Diphenhydramine HCl [Benadryl] 25 mg PO Q6H #25 cap 08/29/17 Ranitidine HCl [Zantac] 150 mg PO BID #14 tablet 08/29/17 Allergies Allergy/AdvReac Type Severity Reaction Status Date / Time No Known Drug Allergies Allergy Verified 08/29/17 13:30 Review of Systems Constitutional: Denies: Chills, Fever, Malaise, Weakness Eyes: Denies: Eye discharge, Eye pain, Photophobia, Vision change ENT: Denies: Congestion, Dental pain, Ear pain, Throat pain Respiratory: Denies: Cough, Dyspnea, Hemoptysis, Stridor, Wheezes Cardiovascular: Denies: Chest pain, Palpitations, Syncope Endocrine: Denies: Fatigue Gastrointestinal: Denies: Abdominal pain, Diarrhea, Nausea, Vomiting Musculoskeletal: Denies: Arthralgia, Back pain, Joint swelling, Myalgia Skin: Reports: As per HPI, Change in color, Rash Neurological: Denies: Headache, Numbness, Weakness Psychiatric: Denies: Anxiety Hematological/Lymphatic: Denies: Blood Clots, Easy bleeding, Easy bruising, Swollen glands Past Medical History - SOCIAL HISTORY Smoking Status: Never smoker Alcohol Use: None Drug Use: None - RESPIRATORY Hx Respiratory Disorders: No - CARDIOVASCULAR Hx Cardio Disorders: Yes Hx Abnormal EKG: Yes Hx Cardiac Cath: Yes Hx Chest Pain: Yes Hx Heart Attack: Yes Hx Hypertension: Yes Hx Irregular Heartbeat: Yes Hx Palpitations: Yes - NEURO Hx Neuro Disorders: No - GI Hx GI Disorders: Yes Hx Diverticulitis: Yes - Hx Genitourinary Disorders: No - ENDOCRINE Hx Diabetes: No Hx Thyroid Disease: No - MUSCULOSKELETAL Hx Musculoskeletal Disorders: Yes Hx Gout: Yes - PSYCH Hx Psych Problems: No - HEMATOLOGY/ONCOLOGY Hx Hematology/Oncology Disorders: No Family Medical History Any Significant Family History?: Yes Family Hx Comment (NOT TO BE USED IN PLACE OF ITEMS BELOW): gout Hx Cancer: Mother, Grandparents Hx HTN: Father, Grandparents Physical Exam - General General Appearance: Alert, Oriented x3, Cooperative, No acute distress Limitations: No limitations - Head Head exam: Normal inspection - Eye Eye exam: Periorbital swelling (mild left eyelid swelling). negative: Normal appearance, Conjunctival injection, Scleral icterus - ENT ENT exam: Mucous membranes moist, Normal external ear exam, Normal orophraynx ( mild lip swelling). negative: Normal exam, Mucous membranes dry Ear exam: Normal external inspection. negative: External canal tenderness Nasal Exam: Normal inspection. negative: Discharge, Sinus tenderness Mouth exam: Normal external inspection, Tongue normal. negative: Drooling, Muffled voice, Tongue elevation Teeth exam: Normal inspection. negative: Dental caries Throat exam: Normal inspection, Other (widely patent). negative: Tonsillar erythema, Tonsillar exudate - Neck Neck exam: Normal inspection, Full ROM. negative: Tenderness - Respiratory Respiratory exam: Normal lung sounds bilaterally. negative: Accessory muscle use, Decreased breath sounds, Prolonged expiratory, Respiratory distress, Rhonchi, Stridor, Wheezes - Cardiovascular Cardiovascular Exam: Regular rate, Normal rhythm, Normal heart sounds - GI/Abdominal GI/Abdominal exam: Soft, Other (Hives over the lower abdomen). negative: Tenderness - Rectal Rectal exam: Deferred - exam: Deferred - Extremities Extremities exam: Normal inspection, Full ROM, Normal capillary refill. negative: Tenderness - Back Back exam: Reports: Normal inspection, Full ROM. Denies: CVA tenderness (R), CVA tenderness (L), Muscle spasm, Rash noted, Tenderness - Neurological Neurological exam: Alert, CN II-XII intact, Normal gait, Oriented X3. negative : Altered - Psychiatric Psychiatric exam: Normal affect, Normal mood - Skin Skin exam: Urticaria Course - Reevaluation(s) Reevaluation #1: The patient was seen and examined He is comfortable in no distress He has left eye lid swelling, lip swelling, no wheezing or shortness of breath Given his stent one month ago Epi will be held for now given his symptoms are mild but I discussed with him may need to give if worsens. 08/29/17 13:40 The patient is resting comfortably He is feeling improved 08/29/17 13:56 08/29/17 14:51 The patient continues to do well with decreased symptoms, decreased swelling and hives His tongue is normal Very minimal lower lip swelling No feeling of shortness of breath, no wheezing, no throat swelling. 08/29/17 15:54 The patient is doing well with no symptoms Medical Decision Making - Lab Data Result diagrams: 08/29/17 13:30 08/29/17 14:18 Disposition Disposition: Discharge Clinical Impression: Hives Disposition: Home, Self-Care Condition: (1) Good Instructions: Urticaria (ED) Additional Instructions: Return if you have any worsening of symptoms, swelling of the tongue or throat Take benadryl 25-50mg every 4-6 hours. This causes drowsiness. Continue your steroids as prescribed Take the Zantac as directed as well Hold your Lisinopril until to talk to Dr Cooper given Lisinopril can cause swelling (angioedema) to the lips and face Prescriptions: Diphenhydramine HCl [Benadryl] 25 mg PO Q6H #25 cap Ranitidine HCl [Zantac] 150 mg PO BID #14 tablet Forms: Patient Portal Access Time of Disposition: 16:16 Quality - Quality Measures Quality Measures: N/A - Blood Pressure Screening Does Patient Have Any of the Following: No Blood Pressure Classification: Pre-Hypertensive BP Reading Systolic Measurement: 126 Diastolic Measurement: 88 Screening for High Blood Pressure: < Pre-Hypertensive BP, F/U Documented > [ G8950] Pre-Hypertensive Follow-up Interventions: Referral to alternative/primary care provider.
[2017-08-29] MEDS: DIPHENHYDRAMINE HCL IV 50 MG/ML VIAL IVP ONE (13:35)
[2017-08-29] MEDS: METHYLPREDNISOLONE PF 125MG/VIAL IVP ONE (13:35)
[2017-08-29] MEDS: RANITIDINE HCL 50 MG in 0.9 % SODIUM CHLORIDE 100ML 100 ML IVPB ONE (13:43)
[2017-08-29 14:27] LABS: BASO % 0.1 % (0-6); EOS % 0.5 % (0-6); GRAN % 64.6 % (47-80); HEMATOCRIT 48.4 % (42.0-52.0); HEMOGLOBIN 16.7 gm/dl (14.0-18.0); LYMPH % 29.2 % (16-45); MEAN CELL VOLUME 85.5 fl (81-97); MEAN CORPUSCULAR HEMOGLOBIN 29.5 pg (27-33); MEAN CORPUSCULAR HGB CONC 34.5 g/dl (32-36); MEAN PLATELET VOLUME 9.4 fl (7.4-10.4); MONO % 5.6 % (0-9); PLATELET COUNT 455 K/uL (130-400); RED BLOOD COUNT 5.66 M/uL (4.40-5.70); RED CELL DISTRIBUTION WIDTH 13.1 % (11.5-14.5); WHITE BLOOD COUNT W/O DIFF 9.6 K/uL (4.2-12.2)
[2017-08-29 14:44] LABS: BLOOD UREA NITROGEN 20 mg/dL (6-20); CREATININE 0.9 mg/dL (0.7-1.2); EST GLOMERULAR FILTRATION RATE > 60 mL/min; GLUCOSE,RANDOM 103 mg/dL (74-109)
== END 2017-08-29 16:40 | disposition home or self-care (01) ==
LOC: ER 13:25
DX: L50.0 Allergic urticaria (principal); H02.846 Edema of left eye, unspecified eyelid
CPT/HCPCS: 80048; 85025; 96374; 96375; 99284; J1200; J2780; J2930

== ENCOUNTER 2017-09-01 12:39 | Emergency (ER) | payer BC, OTHER ==
--- NOTE | 2017-09-01 13:26 | Emergency Department Record ---
History of Present Illness - General Chief complaint: Allergic Reaction Stated complaint: REACTION TO MEDS, RASH Time Seen by Provider: 09/01/17 13:19 Source: Patient, RN notes reviewed - History of Present Illness Initial Comments: seen in ED 2 days ago and he has hives and his tongue and lips are swollen. patient is on cardiac meds for two months and he had stents placed at that time at [facility]. patient was taking prednisone for gout 2 days ago and that was stopped and his lip swelling went down. MD Complaint: Allergic reaction, Hives - Related Data Previous Rx's Medication Instructions Recorded Diphenhydramine HCl [Benadryl] 25 mg PO Q6H #25 cap 08/29/17 Ranitidine HCl [Zantac] 150 mg PO BID #14 tablet 08/29/17 Allergies Allergy/AdvReac Type Severity Reaction Status Date / Time No Known Drug Allergies Allergy Verified 08/29/17 13:30 Review of Systems Reviewed: No additional complaints except as noted below Constitutional: Reports: As per HPI. Denies: Chills, Fever, Malaise, Night sweats, Weakness, Weight change Eyes: Reports: As per HPI. Denies: Eye discharge, Eye pain, Photophobia, Vision change ENT: Reports: As per HPI. Denies: Congestion, Dental pain, Ear pain, Epistaxis , Hearing loss, Throat pain Respiratory: Reports: As per HPI. Denies: Cough, Dyspnea, Hemoptysis, Stridor, Wheezes Cardiovascular: Reports: As per HPI. Denies: Arrhythmia, Chest pain, Dyspnea on exertion, Edema, Murmurs, Orthopnea, Palpitations, Paroxysmal nocturnal dyspnea, Rheumatic Fever, Syncope Endocrine: Reports: As per HPI. Denies: Fatigue, Heat or cold intolerance, Polydipsia, Polyuria Gastrointestinal: Reports: As per HPI. Denies: Abdominal pain, Constipation, Diarrhea, Hematemesis, Hematochezia, Melena, Nausea, Vomiting Genitourinary: Reports: As per HPI. Denies: Dysuria, Frequency, Hematuria, Incontinence, Retention, Testicular pain, Testicular mass, Urgency Musculoskeletal: Reports: As per HPI. Denies: Arthralgia, Back pain, Gout, Joint swelling, Myalgia, Neck pain Skin: Reports: As per HPI, Rash (hives). Denies: Bruising, Change in color, Change in hair/nails, Lesions, Pruritus Neurological: Reports: As per HPI. Denies: Abnormal gait, Confusion, Headache, Numbness, Paresthesias, Seizure, Tingling, Tremors, Vertigo, Weakness Psychiatric: Reports: As per HPI. Denies: Anxiety, Auditory hallucinations, Depression, Homicidal thoughts, Suicidal thoughts, Visual hallucinations Hematological/Lymphatic: Reports: As per HPI. Denies: Anemia, Blood Clots, Easy bleeding, Easy bruising, Swollen glands Past Medical History - SOCIAL HISTORY Smoking Status: Never smoker Drug Use: None - RESPIRATORY Hx Respiratory Disorders: No - CARDIOVASCULAR Hx Cardio Disorders: Yes Hx Abnormal EKG: Yes Hx Cardiac Cath: Yes Hx Chest Pain: Yes Hx Heart Attack: Yes Hx Hypertension: Yes Hx Irregular Heartbeat: Yes Hx Palpitations: Yes - NEURO Hx Neuro Disorders: No - GI Hx GI Disorders: Yes Hx Diverticulitis: Yes - Hx Genitourinary Disorders: No - ENDOCRINE Hx Diabetes: No Hx Thyroid Disease: No - MUSCULOSKELETAL Hx Musculoskeletal Disorders: Yes Hx Gout: Yes - PSYCH Hx Psych Problems: No - HEMATOLOGY/ONCOLOGY Hx Hematology/Oncology Disorders: No Family Medical History Family Hx Comment (NOT TO BE USED IN PLACE OF ITEMS BELOW): gout Hx Cancer: Mother, Grandparents Hx HTN: Father, Grandparents Physical Exam - General General Appearance: Alert, Oriented x3, Cooperative, No acute distress - Head Head exam: Normal inspection. negative: Atraumatic - Eye Eye exam: Normal appearance, PERRL Pupils: Normal accommodation - ENT ENT exam: Normal exam, Mucous membranes moist, Normal external ear exam, Normal orophraynx, TM's normal bilaterally Ear exam: Normal external inspection. negative: External canal tenderness Nasal Exam: Normal inspection. negative: Discharge, Sinus tenderness Mouth exam: Normal external inspection, Tongue normal Teeth exam: Normal inspection. negative: Dental caries Throat exam: Normal inspection. negative: Tonsillar erythema, Tonsillar exudate - Neck Neck exam: Normal inspection, Full ROM. negative: Tenderness - Respiratory Respiratory exam: Normal lung sounds bilaterally. negative: Respiratory distress - Cardiovascular Cardiovascular Exam: Regular rate, Normal rhythm, Normal heart sounds - GI/Abdominal GI/Abdominal exam: Soft, Normal bowel sounds. negative: Tenderness - Rectal Rectal exam: Deferred - exam: Deferred - Extremities Extremities exam: Normal inspection, Full ROM, Normal capillary refill. negative: Tenderness - Back Back exam: Reports: Normal inspection, Full ROM. Denies: Muscle spasm, Rash noted, Tenderness - Neurological Neurological exam: Alert, Normal gait, Oriented X3, Reflexes normal - Psychiatric Psychiatric exam: Normal affect, Normal mood - Skin Skin exam: Dry, Intact, Normal color, Warm Course - Reevaluation(s) Reevaluation #1: Discussed case with Dr. Mirza and decided to stop the lisinopril and increase the metoprolol to 50 mg BID. Because the anibal could be the cause of his angioedema 09/01/17 14:05 Disposition Clinical Impression: Urticaria Angio-edema Qualifiers: Encounter type: initial encounter Qualified Code(s): T78.3XXA - Angioneurotic edema, initial encounter Condition: (2) Stable Instructions: Angioedema (ED) Additional Instructions: stop lisinopril increase metoprolol tartrate to 50 mg BID follow up with Dr. Good in 1-2 weeks Forms: Patient Portal Access Time of Disposition: 14:07 Quality - Quality Measures Quality Measures: N/A - Blood Pressure Screening Does Patient Have Any of the Following: No Blood Pressure Classification: Pre-Hypertensive BP Reading Systolic Measurement: 128 Diastolic Measurement: 70 Screening for High Blood Pressure: < Pre-Hypertensive BP, F/U Documented > [ [id number]] Pre-Hypertensive Follow-up Interventions: Referral to alternative/primary care provider.
== END 2017-09-01 14:16 | disposition home or self-care (01) ==
LOC: ER 12:39
DX: T78.3XXA Angioneurotic edema, initial encounter (principal)
CPT/HCPCS: 99282